=== PATIENT | male | born 1955 | race Caucasian/White ===

== ENCOUNTER 2023-11-20 00:55 | Emergency (ER) | payer MEDICARE, OTHER ==
[~2023-11-20] VITALS: Ht 182.9 cm; Wt 122.5 kg
[2023-11-20 01:11] VITALS: BP_SYST 141; PULSE 107; RESP 17; TEMP 98.6; O2SAT 95
[2023-11-20] MEDS: IBUPROFEN 600 MG TABLET PO ONE (01:40)
[2023-11-20] MEDS ORDERED: NAPR-1172 PO (02:07)
[2023-11-20 05:46] VITALS: BP_SYST 154; PULSE 93; RESP 22; TEMP 98.7; O2SAT 96
== END 2023-11-20 05:46 | disposition home or self-care (01) ==
LOC: SED 00:55
DX: S83.91XA Sprain of unspecified site of right knee, initial encounter (principal); S83.92XA Sprain of unspecified site of left knee, initial encounter; S20.213A Contusion of bilateral front wall of thorax, initial encounter; S60.222A Contusion of left hand, initial encounter; S60.221A Contusion of right hand, initial encounter; Z98.890 Other specified postprocedural states; Z79.899 Other long term (current) drug therapy; V89.2XXA Person injured in unspecified motor-vehicle accident, traffic, initial encounter; Y93.89 Activity, other specified; Y92.89 Other specified places as the place of occurrence of the external cause; Y99.8 Other external cause status
CPT/HCPCS: 71110; 99284